=== PATIENT | male | born 1990 | race Hispanic/Latino ===

== ENCOUNTER 2023-08-23 08:16 | Day surgery (SDC) | payer OTHER ==
[2023-08-22 09:36] VITALS: BMI 33.9
[~2023-08-23 08:16] MED LIST: EPINEPHrine 0.3 MG in Ophthalmic Irrigation Solution 500 ML IRR SCH
[2023-08-23] MEDS ORDERED: Cyclopentolate 1% Opth Drop 2 ML BOT ONE (09:08)
[2023-08-23] MEDS ORDERED: PHENYLephrine 2.5% Ophth Soln 15 ml Bottle ONE (09:08)
[2023-08-23] MEDS ORDERED: PROPOFOL 20 ML ONE (09:48)
[2023-08-23] MEDS ORDERED: fentaNYL 50 mcg/mL 1 mL Vial ONE ×2 (09:49→15:05)
[2023-08-23] MEDS ORDERED: Lidocaine 1% PF 5 ML VIAL ONE ×2 (09:51→11:56)
[2023-08-23] MEDS ORDERED: Ondansetron PF 4 MG/2 ML Vial ONE (11:43)
[2023-08-23] MEDS ORDERED: Dexamethasone 20 MG/5 ML VIAL ONE (11:43)
[2023-08-23] MEDS ORDERED: Lidocaine 4% PF 5 ML AMP ONE (11:56)
[2023-08-23] MEDS ORDERED: Bupivacaine 0.75% 10 ML VIAL ONE (11:56)
[2023-08-23] MEDS ORDERED: CEFAZOLIN 1 GM VIAL ONE (11:56)
[2023-08-23] MEDS ORDERED: Triamcinolone 40 MG/ML VIAL ONE (11:56)
[2023-08-23] MEDS ORDERED: ePHEDrine Sulfate 50 MG/10 ML VIAL ONE (12:23)
== END 2023-08-23 15:59 | disposition home or self-care (01) ==
LOC: SDC 08:16
PROVIDERS: ATTEND Ophthalmology Retina Specialist
PROC: 08U10JZ Supplement of Left Eye with Synthetic Substitute, Open Approach (ICD-10-PCS; principal; 2023-08-23)
DX: H33.022 Retinal detachment with multiple breaks, left eye (principal)
CPT/HCPCS: C1776; J0171; J0690; J1100; J2405; J2704; J3010; J3301; J3490